=== PATIENT | male | born 1960 | race Caucasian/White ===

== ENCOUNTER 2017-02-06 08:11 | Observation (INO) | payer MEDICARE, MEDICAID ==
[~2017-02-06] VITALS: Ht 170.2 cm; Wt 67.0 kg
[~2017-02-06 08:11] MED LIST: CLONAZEP ODT1 MG OR; CLONAZEPAM1 MG OR; EQ ASPIRIN325 M1 OR; GLUCOPHAGE1000 MG OR; HUMALOG100 MG/ML; K-LOR20 MEQ OR; LISINOPRIL20 MG OR; LORTAB 10 OR; LORTAB 7.5 OR; METOPROLOL OR; NO MEDS TAKEN; OMEPRAZOLE20 MG OR; OXYCODONE15 MG OR; PENICILLN VK500 M1 OR; PERCOCET 5/325M1 TAB OR; PRILOSEC20 MG PO; SEROPHENE50 MG OR; SEROQUEL50 MG OR; TRIMOX500 MG PO; ULTRAM50 M1 OR; ULTRAM50 MG OR; XANAX1 MG OR; XANAX1 MG PO; ZOCOR20 MG; ZOCOR20 MG OR
[2017-02-06] MEDS ORDERED: LISINOPRIL10 MG PO (09:14)
[2017-02-06] MEDS ORDERED: CLONAZEPAM1 MG PO (09:14)
[2017-02-06 09:31] LABS: HEMATOCRIT 42.1 % (39.0-50.0); HEMOGLOBIN 15.1 g/dl (14.0-18.0); IMMATURE GRANULOCYTES 0.9 % (0.0-1.0); MEAN CELL VOLUME 84.7 fL CALC (80.0-100.0); MEAN CORPUSCULAR HGB 30.4 pG CALC (26.0-32.0); MEAN CORPUSCULAR HGB CONC 35.9 g/L CALC (32.0-36.0); NEUT# 8.1 thou/uL (1.82-7.42); RED BLOOD COUNT 4.97 mill/uL (4.70-6.10); RED CELL DISTRI WIDTH 12.7 % (11.5-15.5)
[2017-02-06 09:46] LABS: ALBUMIN 4.5 g/dL (3.2-5.0); ALKALINE PHOSPHATASE 180 u/l (38-126); ANION GAP 16 (6-22 (CALC)); BILIRUBIN, TOTAL 0.8 mg/dL (0.0-1.4); BUN 9 mg/dL (9-20); BUN/CREATININE RATIO 17 (12-20 (CALC)); CALCIUM 9.5 mg/dL (8.4-10.2); CARBON DIOXIDE 28 mmol/l (22-30); CHLORIDE 102 mmol/l (95-108); CREATININE 0.5 mg/dL (0.7-1.3); ETHYL ALCOHOL 0 mg/dl (0-30); GFR > 60 ML/MIN (>=60 (CALC)); GFR FOR AFR.AMER. > 60 ML/MIN (>=60 (CALC)); GLUCOSE 286 mg/dL (75-110); POTASSIUM 3.9 mmol/l (3.5-5.1); SGOT/AST 29 u/l (17-59); SGPT/ALT 47 u/l (21-72); SODIUM 142 mmol/l (137-146); TOTAL PROTEIN 7.8 g/dL (6.3-8.2)
[2017-02-06 09:48] LABS: URINE BILIRUBIN - DIPSTICK NEGATIVE (NEGATIVE); URINE BLOOD DIPSTICK NEGATIVE (NEGATIVE); URINE CLARITY CLEAR; URINE COLOR YELLOW; URINE GLUCOSE - DIPSTICK >=1000 mg/dL (NEGATIVE); URINE KETONE TRACE mg/dL (NEGATIVE); URINE LEUK ESTERASE NEGATIVE (NEGATIVE); URINE NITRITE - DIPSTICK NEGATIVE (Negative); URINE PH 6.5 (4.5-8.0); URINE PROTEIN - DIPSTICK NEGATIVE (NEG-TRACE); URINE SPECIFIC GRAVITY 1.015; URINE UROBILINOGEN - DIPSTICK 0.2 E.U./dL (0.2)
[2017-02-06 09:51] LABS: BARBITURATES NEGATIVE (NEGATIVE); COCAINE NEGATIVE (NEGATIVE); METHADONE NEGATIVE (NEGATIVE); OXCYCODONE NEGATIVE (NEGATIVE); TETRAHYDROCANNABIONOL NEGATIVE (NEGATIVE); TRICYLIC ANTIDEPRESSANTS NEGATIVE (NEGATIVE)
[2017-02-06 09:53] LABS: MYOGLOBIN 26 ng/mL (0 - 121)
[2017-02-06] MEDS ORDERED: LANTUS100 UNIT/M SC (13:45)
[2017-02-06] MEDS ORDERED: PROZAC20 M1 PO (13:49)
[2017-02-06] MEDS ORDERED: EFFEXOR37.5 MG PO (13:49)
[2017-02-06 14:05] VITALS: BP 140/75
[2017-02-06 19:32] VITALS: BP 127/73
[2017-02-07 00:30] VITALS: BP 130/75
[2017-02-07 05:00] VITALS: BP 129/78
[2017-02-07 06:32] LABS: CHOLESTEROL HDL RATIO 3.9 (<4.4 (CALC))
[2017-02-07 07:56] VITALS: BP 135/87
[2017-02-07 08:00] VITALS: BP 135/87
[2017-02-07] MEDS ORDERED: ADLT ASA LOW81 MG PO (09:04)
[2017-02-07] MEDS ORDERED: LIPITOR20 MG PO (09:04)
[2017-02-07] MEDS ORDERED: CLONAZEPAM1 MG PO (09:05)
[2017-02-07] MEDS ORDERED: LISINOPRIL10 MG PO (09:06)
== END 2017-02-07 10:57 | disposition home or self-care (01) ==
LOC: ENPENDDIS → ED 08:11 → ED-I 08:30 → ED 13:26 → MS2 13:27
PROVIDERS: Emergency Medicine; ADMIT Internal Medicine; ATTEND Internal Medicine
DX: R07.9 Chest pain, unspecified (principal); I10 Essential (primary) hypertension; E11.9 Type 2 diabetes mellitus without complications; F41.9 Anxiety disorder, unspecified; F32.9 Major depressive disorder, single episode, unspecified; F17.210 Nicotine dependence, cigarettes, uncomplicated; R06.02 Shortness of breath; Z79.4 Long term (current) use of insulin; Z91.14 Patient's other noncompliance with medication regimen